=== PATIENT | male | born 1970 | race Hispanic/Latino ===

== ENCOUNTER 2019-09-26 00:31 | Emergency (ER) | payer SELFPAY ==
[2019-09-26 01:17] LABS: Basophils # (Auto) 0.1 K/mm3 (0.0-0.1); Basophils % (Auto) 1.2 % (0.0-1.8); Eosinophils # (Auto) 0.1 K/mm3 (0.0-0.4); Eosinophils % (Auto) 0.8 % (0.0-4.3); Hemoglobin 14.5 gm/dl (11.8-15.2); Lymphocytes # (Auto) 1.7 K/mm3 (1.2-5.4); Lymphocytes % (Auto) 15.9 % (13.4-35.0); Mean Corpuscular HGB Conc 35 % (32-34); Mean Corpuscular Volume 91 fl (84-94); Monocytes # (Auto) 1.5 K/mm3 (0.0-0.8); Monocytes % (Auto) 14.2 % (0.0-7.3); Platelet Count 330 K/mm3 (140-440); Red Blood Count 4.49 M/mm3 (3.65-5.03); Red Cell Distribution Width 15.2 % (13.2-15.2)
[2019-09-26 01:37] LABS: BUN/Creatinine Ratio 24; Blood Urea Nitrogen 12 mg/dL (9-20); Calcium 8.8 mg/dL (8.4-10.2); Hemolysis Index 15
[2019-09-26 01:40] LABS: INR 1.13 (0.87-1.13)
[2019-09-26 01:41] LABS: Partial Thromboplastin Time 27.1 Sec. (24.2-36.6)
--- NOTE | 2019-09-26 01:57 | Cat Scan Report ---
CT head/brain wo con INDICATION: fall, injury. TECHNIQUE: All CT scans at this location are performed using the following dose modulation technique: Automated exposure control. CONTRAST: None. COMPARISON: None available. FINDINGS: The ventricular system is appropriate in size and configuration without midline shift. Nega tive for mass, stroke or hemorrhage. An area of chronic white matter infarction involves the right co yamileth radiata. A small right posterior watershed infarct is noted. A small small chronic left cerebell ar infarct is also noted. Negative for acute stroke, mass or intracranial hemorrhage. Soft tissue swelling is noted at the left frontal region. IMPRESSION: 1. Soft tissue injury. 2. Old infarctions. Signer Name: Johny Parker MD Signed: 09/26/2019 1:52 AM Workstation Name: [id number]
--- NOTE | 2019-09-26 02:08 | Cat Scan Report ---
CT cervical spine wo con INDICATION: fall, injury. TECHNIQUE: All CT scans at this location are performed using the following dose modulation technique: Automated exposure control. CONTRAST: None. COMPARISON: None available. FINDINGS: Satisfactory alignment without vertebral compression. Mild degenerative disc disease is gre atest at C3-C4 and C6-C7. Negative for soft tissue injury. IMPRESSION: 1. Mild degenerative disc disease. 2. No bony or soft tissue injury. Signer Name: Johny Parker MD Signed: 09/26/2019 2:03 AM Workstation Name: [id number]
[2019-09-26 02:46] LABS: Cannabinoid Screen,Urine PRESUMPTIVE NEGATIVE; Cocaine Screen,Urine PRESUMPTIVE NEGATIVE; Methadone Screen,Urine PRESUMPTIVE NEGATIVE; Opiate Screen,Urine PRESUMPTIVE NEGATIVE
[2019-09-26 03:06] LABS: Amphetamine Screen,Urine PRESUMPTIVE POSITIVE; Benzodiazepines Screen,Urine PRESUMPTIVE POSITIVE
[2019-09-26] MEDS ORDERED: LIDOCAINE 1%/EPINEPHRINE 1:100,000 VIAL (20 ML) INFILTRATI ONE (03:30)
[2019-09-26] MEDS ORDERED: TETANUS,DIPH,PERTUSS(ACELL) VACCINE 0.5 ML SYRINGE IM ONE (03:31)
--- NOTE | 2019-09-26 03:31 | Emergency Department Report ---
<CLARA MENDEZ - Last Filed: 09/26/19 06:55> ED Head Trauma HPI - General Chief complaint: Fall Stated complaint: FALL/HEAD/FACIAL LACERATION Time Seen by Provider: 09/26/19 00:47 - Related Data Previous Rx's Medication Instructions Recorded Last Taken Type cephALEXin [Keflex] 500 mg PO Q12HR 7 Days #14 cap 09/26/19 Unknown Rx Allergies/Adverse reactions: Allergies Allergy/AdvReac Type Severity Reaction Status Date / Time ketorolac [From Toradol] Allergy Unknown Verified 09/26/19 00:59 tramadol [From Ultram] Allergy Unknown Verified 09/26/19 01:00 ED Past Medical Hx - Medications Home Medications: Home Medications Medication Instructions Recorded Confirmed Last Taken Type cephALEXin [Keflex] 500 mg PO Q12HR 7 Days #14 cap 09/26/19 Unknown Rx - Lab Data Result diagrams: 09/26/19 01:00 09/26/19 01:00 - Medical Decision Making I evaluated Mr. Haynes prior to his discharge. He is awake alert. He understands verbal discharge instructions. Ambulates without difficulty or assistance. ED Disposition Clinical Impression: Head injury, Benzodiazepine abuse, Facial laceration, Methamphetamine abuse Disposition: DC-01 TO HOME OR SELFCARE Is pt being admited?: No Does the pt Need Aspirin: No Condition: Stable Instructions: Suture Care (ED), Laceration (ED), Benzodiazepine Abuse (ED), Minor Head Injury (ED), Methamphetamine Abuse (ED) Additional Instructions: Return for suture removal in 7 days. Prescriptions: cephALEXin [Keflex] 500 mg PO Q12HR 7 Days #14 cap Referrals: PRIMARY CARE, [Primary Care Provider] - 3-5 Days Forms: Work/School Release Form(ED) <JEANIE NUNEZ - Last Filed: 10/01/19 09:42> ED Head Trauma HPI - General Source: patient Mode of arrival: Ambulatory Limitations: No Limitations - History of Present Illness Initial comments: 49-year-old male patient presents to ED with head injury. Patient states he fell down a hill yesterday. Patient denies any alcohol or drug use. Patient currently appears intoxicated. Patient is somewhat confused. Complaint: head injury -: days(s) (1) Mechanism of Injury: mechanical fall Location: frontal Loss of Consciousness: unsure Place: outdoors Other Injuries: laceration ED Review of Systems ROS: Stated complaint: FALL/HEAD/FACIAL LACERATION Other details as noted in HPI Comment: All other systems reviewed and negative Skin: other (laceration to face) Neurological: denies: headache ED Past Medical Hx - Past Medical History Previous Medical History?: Yes Hx Hypertension: Yes Hx Psychiatric Treatment: Yes - Surgical History Past Surgical History?: Yes Hx Appendectomy: Yes - Social History Smoking Status: Current Every Day Smoker Substance Use Type: None ED Physical Exam - General Limitations: No Limitations General appearance: appears intoxicated, lethargic, other (pt appears unkempt) - Head Head exam: Present: other (4 cm laceration just above the left eyebrow; abraasion to left cheek) - Eye Eye exam: Present: normal appearance, PERRL, EOMI - ENT ENT exam: Present: mucous membranes moist - Neck Neck exam: Present: normal inspection. Absent: tenderness - Respiratory Respiratory exam: Present: normal lung sounds bilaterally. Absent: respiratory distress - Cardiovascular Cardiovascular Exam: Present: regular rate, normal rhythm - GI/Abdominal GI/Abdominal exam: Present: soft. Absent: distended, tenderness - Extremities Exam Extremities exam: Present: normal inspection - Neurological Exam Neurological exam: Present: alert. Absent: oriented X3 (oriented to self and place, not time) - Psychiatric Psychiatric exam: Present: normal affect, normal mood - Skin Skin exam: Present: warm, dry, intact, normal color ED Course Vital Signs 09/26/19 09/26/19 09/26/19 00:34 00:53 00:54 Temperature 97.3 F L Pulse Rate 78 73 Respiratory 17 17 Rate Blood Pressure 132/99 Blood Pressure 158/108 [Left] O2 Sat by Pulse 100 96 96 Oximetry 09/26/19 09/26/19 09/26/19 01:31 04:47 06:09 Temperature Pulse Rate 84 79 79 Respiratory 18 19 17 Rate Blood Pressure Blood Pressure 186/114 153/94 160/87 [Left] O2 Sat by Pulse 98 98 97 Oximetry 09/26/19 07:00 Temperature Pulse Rate 89 Respiratory 17 Rate Blood Pressure Blood Pressure 141/83 [Left] O2 Sat by Pulse 98 Oximetry - Laceration /Wound Repair Left Face Wound Location: face Wound Length (cm): 4 Wound's Depth, Shape: into muscle, linear Wound Explored: no foreign body removed Irrigated w/ Saline (ccs): 50 Anesthesia: Lidocaine w/ Epi Volume Anesthetic (ccs): 5 Wound Repaired With: sutures Suture Size/Type: 4:0, proline Number of Sutures: 1 (running suture) Sterile Dressing Applied?: Yes - Lab Data Result diagrams: 09/26/19 01:00 09/26/19 01:00 Lab Results 09/26/19 09/26/19 09/26/19 Range/Units 01:00 01:00 01:00 WBC 10.5 (4.5-11.0) K/mm3 RBC 4.49 (3.65-5.03) M/mm3 Hgb 14.5 (11.8-15.2) gm/dl Hct 41.0 (35.5-45.6) % MCV 91 (84-94) fl MCH 32 (28-32) pg MCHC 35 H (32-34) % RDW 15.2 (13.2-15.2) % Plt Count 330 (140-440) K/mm3 Lymph % (Auto) 15.9 (13.4-35.0) % [place] % (Auto) 14.2 H (0.0-7.3) % Eos % (Auto) 0.8 (0.0-4.3) % Baso % (Auto) 1.2 (0.0-1.8) % Lymph # 1.7 (1.2-5.4) K/mm3 [place] # 1.5 H (0.0-0.8) K/mm3 Eos # 0.1 (0.0-0.4) K/mm3 Baso # 0.1 (0.0-0.1) K/mm3 Seg Neutrophils % 67.9 (40.0-70.0) % Seg Neutrophils # 7.1 (1.8-7.7) K/mm3 PT 14.4 (12.2-14.9) Sec. INR 1.13 (0.87-1.13) APTT 27.1 (24.2-36.6) Sec. Sodium 136 L (137-145) mmol/L Potassium 3.5 L (3.6-5.0) mmol/L Chloride 101.4 (98-107) mmol/L Carbon Dioxide 22 (22-30) mmol/L Anion Gap 16 mmol/L BUN 12 (9-20) mg/dL Creatinine 0.5 L (0.8-1.5) mg/dL Estimated GFR > 60 ml/min BUN/Creatinine Ratio 24 % Glucose 106 H (75-100) mg/dL Calcium 8.8 (8.4-10.2) mg/dL Urine Opiates Screen Urine Methadone Screen Ur Barbiturates Screen Ur Phencyclidine Scrn Ur Amphetamines Screen U Benzodiazepines Scrn Urine Cocaine Screen U Marijuana (THC) Screen Drugs of Abuse Note Plasma/Serum Alcohol (0-0.07) % 09/26/19 09/26/19 Range/Units 01:00 02:19 WBC (4.5-11.0) K/mm3 RBC (3.65-5.03) M/mm3 Hgb (11.8-15.2) gm/dl Hct (35.5-45.6) % MCV (84-94) fl MCH (28-32) pg MCHC (32-34) % RDW (13.2-15.2) % Plt Count (140-440) K/mm3 Lymph % (Auto) (13.4-35.0) % [place] % (Auto) (0.0-7.3) % Eos % (Auto) (0.0-4.3) % Baso % (Auto) (0.0-1.8) % Lymph # (1.2-5.4) K/mm3 [place] # (0.0-0.8) K/mm3 Eos # (0.0-0.4) K/mm3 Baso # (0.0-0.1) K/mm3 Seg Neutrophils % (40.0-70.0) % Seg Neutrophils # (1.8-7.7) K/mm3 PT (12.2-14.9) Sec. INR (0.87-1.13) APTT (24.2-36.6) Sec. Sodium (137-145) mmol/L Potassium (3.6-5.0) mmol/L Chloride (98-107) mmol/L Carbon Dioxide (22-30) mmol/L Anion Gap mmol/L BUN (9-20) mg/dL Creatinine (0.8-1.5) mg/dL Estimated GFR ml/min BUN/Creatinine Ratio % Glucose (75-100) mg/dL Calcium (8.4-10.2) mg/dL Urine Opiates Screen Presumptive negative Urine Methadone Screen Presumptive negative Ur Barbiturates Screen Presumptive negative Ur Phencyclidine Scrn Presumptive negative Ur Amphetamines Screen Presumptive positive U Benzodiazepines Scrn Presumptive positive Urine Cocaine Screen Presumptive negative U Marijuana (THC) Screen Presumptive negative Drugs of Abuse Note Disclamer Plasma/Serum Alcohol < 0.01 (0-0.07) % - Radiology Data Radiology results: report reviewed, image reviewed - Medical Decision Making 49-year-old male with laceration to the left supraorbital region. CT head and C-spine both found to be negative. It is unclear when patient sustained his injuries, however, the laceration was irrigated with normal saline and sutured due to the width of the laceration. Patient is negative for EtOH. However drug screen is positive for benzodiazepines and methamphetamine. Patient is still quite intoxicated. Will sign out to my colleague, Dr Billy, for sober discharge. - Differential Diagnosis intracranial injury, drug abuse, ETOH intoxication Critical care attestation.: If time is entered above; I have spent that time in minutes in the direct care of this critically ill patient, excluding procedure time. ED Disposition Is pt being admited?: No
[2019-09-26] MEDS ORDERED: LIDOCAINE 1%/EPINEPHRINE 1:100,000 VIAL (20 ML) INFILTRATI NR (05:00)
[2019-09-26 07:02] VITALS: BP 141/83
== END 2019-09-26 07:10 | disposition home or self-care (01) ==
LOC: ED 00:31
DX: F13.10 Sedative, hypnotic or anxiolytic abuse, uncomplicated (principal); F15.10 Other stimulant abuse, uncomplicated; I10 Essential (primary) hypertension; Z90.49 Acquired absence of other specified parts of digestive tract; F17.200 Nicotine dependence, unspecified, uncomplicated; Z79.899 Other long term (current) drug therapy; Z88.8 Allergy status to other drugs, medicaments and biological substances; W19.XXXA Unspecified fall, initial encounter; Y93.89 Activity, other specified; Y92.89 Other specified places as the place of occurrence of the external cause; Y99.8 Other external cause status
CPT/HCPCS: 36415; 70450; 72125; 80048; 80307; 80320; 85025; 85610; 85730; 90471; 90715; G0480